=== PATIENT | female | born 1945 | race Two or more races ===

== ENCOUNTER 2020-09-12 18:34 | Emergency (ER) | payer MEDICAID, MEDICARE, OTHER ==
[~2020-09-12] VITALS: Ht 157.5 cm; Wt 79.4 kg
[~2020-09-12 18:34] MED LIST: BENADRYL25 MG ORAL
--- NOTE | 2020-09-12 18:49 | NUR ---
ED Nurse Note: Pt ambulated to ED from home d/t R hand pain noted with swelling that has been going on for 4 days. Pt is AOx4, in speaking, per pt, she accidentally hit her hand with the door. Pt's VSS, on RA, afebrile on triage. Placed on chair.
[2020-09-12 18:50] VITALS: BP 135/81
--- NOTE | 2020-09-12 19:45 | Diagnostic Imaging Report ---
EXAM: XR Right Hand Complete, 3 or More Views CLINICAL HISTORY: TRAUMA TECHNIQUE: Frontal, lateral and oblique views of the right hand. COMPARISON: No relevant prior studies available. FINDINGS: Bones/joints: Osteopenia. Moderate to severe degenerative changes in the interphalangeal joints. No acute fracture. No dislocation. Soft tissues: Unremarkable. No radiopaque foreign body. IMPRESSION: No acute osseous abnormality.
[2020-09-12] MEDS ORDERED: IBUPROFEN600 M1 ORAL (19:55)
[2020-09-12] MEDS ORDERED: ROBAXIN-500MG ORAL (19:55)
--- NOTE | 2020-09-12 19:55 | Emergency Room Report ---
History of Present Illness General Chief Complaint: Upper Extremity Injury Source: Patient Present Illness HPI 75-year-old female history of hypertension currently taking medication here complaining of right hand pain after falling on outstretched hand 2 days ago. Has not taken medication for symptom relief. Has full range of motion report that swelling and ecchymosis has gone down. Patient has been applying ice. Denies any tingling or numbness. Patient is neurovascularly intact. Has not taken any medication for symptom relief. Denies all other injuries. Allergies: Coded Allergies: No Known Allergies (Unverified , 12/16/14) COVID-19 Screening Contact w/high risk pt: No Experienced COVID-19 symptoms?: No COVID-19 Testing performed TILE BURNER: No Patient History Past Medical History: see triage record Past Surgical History: none Pertinent Family History: none Now: No Immunizations: UTD Reviewed Nursing Documentation: PMH: Agreed; PSxH: Agreed Nursing Documentation-PMH Past Medical History: No History, Except For Hx Hypertension: Yes Review of Systems All Other Systems: negative except mentioned in HPI Physical Exam Vital Signs Date Time Temp Pulse Resp B/P (MAP) Pulse Ox O2 Delivery O2 Flow Rate FiO2 09/12/20 18:41 97.2 103 16 135/81 (99) 98 Room Air Sp02 EP Interpretation: reviewed, normal General Appearance: no apparent distress, alert, GCS 15, non-toxic Head: normocephalic, atraumatic Eyes: bilateral eye normal inspection, bilateral eye PERRL ENT: hearing grossly normal, normal pharynx, no angioedema, normal voice Neck: full range of motion, supple/symm/no masses Respiratory: chest non-tender, lungs clear, normal breath sounds, speaking full sentences Cardiovascular #1: regular rate, rhythm, no edema Cardiovascular #2: 2+ carotid (R), 2+ carotid (L), 2+ radial (R), 2+ radial (L), 2+ dorsalis pedis (R), 2+ dorsalis pedis (L) Gastrointestinal: normal bowel sounds, non tender, soft, non-distended, no guarding, no rebound Genitourinary: no CVA tenderness Musculoskeletal: back normal, non-tender, swelling - Right hand Neurologic: alert, motor strength/tone normal, oriented x3, sensory intact, responsive, speech normal Psychiatric: judgement/insight normal, memory normal, mood/affect normal, no suicidal/homicidal ideation Skin: no rash Lymphatic: no adenopathy Procedures Splinting Splinting : Consent: Verbal Location: Right hand Pre-Made Type: velcro Pre-Proc Neuro Vasc Exam: normal Post-Proc Neuro Vasc Exam: normal Patient Tolerated: Well Complications: None Medical Decision Making PA Attestation ALL Diagnosis and treatment plan reviewed and discussed with my supervising physician Dr. Duarte Diagnostic Impression: Primary Impression: Hand sprain ER Course 75-year-old female history of hypertension currently taking medication here complaining of right hand pain after falling on outstretched hand 2 days ago. Has not taken medication for symptom relief. Has full range of motion report that swelling and ecchymosis has gone down. Patient has been applying ice. Denies any tingling or numbness. Patient is neurovascularly intact. Has not taken any medication for symptom relief. Denies all other injuries. Ddx considered but are not limited to: Hand sprain, hand sprain, hand fracture Vital signs: are WNL, pt. is afebrile H&PE are most consistent with :hand sprain ORDERS: Hand x-ray, motrin robaxin ED INTERVENTIONS: Velcro splint applied DISCHARGE: At this time pt. is stable for d/c to home. Will provide printed patient care instructions, and any necessary prescriptions. Care plan and follow up instructions have been discussed with the patient prior to discharge. Advised patient to follow-up with orthopedist, take medication as directed, if worsening symptom return to emergency room Other X-Ray Diagnostic Results Other X-Ray Diagnostic Results : X-Ray ordered: Right hand # of Views/Limited Vs Complete: 3 View Indication: Pain EP Interpretation: Yes PA Xray: Interpretation reviewed, by supervising MD, and agrees with findings. Interpretation: no dislocation, no soft tissue swelling, no fractures Impression: No acute disease Electronically Signed by: Elinor Darden PA-C Last Vital Signs Date Time Temp Pulse Resp B/P (MAP) Pulse Ox O2 Delivery O2 Flow Rate FiO2 09/12/20 18:50 97.2 16 135/81 98 Room Air 09/12/20 18:41 103 Disposition: HOME, SELF-CARE Condition: Stable Scripts Methocarbamol* (ROBAXIN-500*) 500 Mg Tablet 500 MG ORAL TID PRN for For Pain, #15 TAB 0 Refills Prov: Elinor Crystal 09/12/20 Ibuprofen* (MOTRIN*) 600 Mg Tablet 600 MG ORAL Q6H PRN for For Pain, #30 TAB 0 Refills Prov: Elinor Crystal 09/12/20 Referrals: NON PHYSICIAN (PCP) Patient Instructions: Wrist Sprain Additional Instructions: Take medication as directed, follow-up with pathology specialist, if worsening symptoms return to the emergency room Elinor Crystal Sep 12, 2020 19:55
[2020-09-12 20:00] VITALS: BP 133/75
--- NOTE | 2020-09-12 20:00 | NUR ---
ER DISCHARGE NOTE: Patient is cleared to be discharged per ERMD, pt is aox4, on room air, with stable vital signs. pt was given dc and prescription instructions, pt was able to verbalize understanding, pt id band removed without complications. pt is able to ambulate with steady gait. pt took all belongings.
== END 2020-09-12 20:00 | disposition home or self-care (01) ==
LOC: EMR 19:16
DX: S63.91XA Sprain of unspecified part of right wrist and hand, initial encounter (principal); I10 Essential (primary) hypertension; W01.0XXA Fall on same level from slipping, tripping and stumbling without subsequent striking against object, initial encounter; Y93.9 Activity, unspecified; Y92.9 Unspecified place or not applicable
CPT/HCPCS: 99283